=== PATIENT | male | born 1995 | race Two or more races ===

== ENCOUNTER 2018-09-07 15:23 | Emergency (ER) | payer MEDICAID ==
[~2018-09-07] VITALS: Ht 165.1 cm; Wt 80.7 kg
[2018-09-07 19:06] VITALS: BP 125/67
== END 2018-09-07 19:13 | disposition home or self-care (01) ==
LOC: ER 15:30
DX: S46.911A Strain of unspecified muscle, fascia and tendon at shoulder and upper arm level, right arm, initial encounter (principal); W19.XXXA Unspecified fall, initial encounter; Y93.89 Activity, other specified; Y92.89 Other specified places as the place of occurrence of the external cause; Y99.8 Other external cause status
CPT/HCPCS: 73030